=== PATIENT | female | born 1970 | race Caucasian/White ===

== ENCOUNTER 2016-05-13 12:57 | Emergency (ER) | payer OTHER ==
--- NOTE | 2016-05-13 14:30 | RAD ---
PORTABLE CHEST 1 VIEW: Date: 05/13/16 Time: 1405 hours HISTORY: Chest pain. FINDINGS/IMPRESSION: Comparison made with exam of 02/24/16. Exam limited due to patient's body habitus. The heart size is prominent. Lungs are well expanded without confluent areas of consolidation, pneum othorax, shavonne pulmonary edema, or large effusions. POS: [facility]
[2016-05-13 14:36] LABS: #Eosinphils 0.3 thou/uL (0.0-0.7); #Lymphocytes 1.4 thou/uL (1.20-3.40); #Monocytes 0.6 thou/uL (0.11-0.59); #Neutrophils 5.6 thou/uL (1.40-6.50); %Basophils 0.6 % (0.0-1.0); %Eosinophils 3.3 % (0.0-10.0); %Lymphocytes 18.1 % (21.0-51.0); %Monocytes 7.4 % (0.0-10.0); %Neutrophils 70.7 % (42.0-75.0); Anisocytosis SLIGHT = 6-15 cells (100X) (0-5/hpf); Hemoglobin 12.1 g/dL (12.0-16.0); MDiff Complete? YES; Mean Corpuscular HGB CONC 31.6 g/dL (32.0-36.0); Mean Corpuscular Hemoglobin 24.9 pg (27.0-31.0); Mean Corpuscular Volume 78.7 fl (81.0-99.0); PLT Morphology Comment Appears Adequate; Platelet Count 380 thou/uL (130-400); RBC Distribution Width 18.8 % (11.5-14.5); Red Blood Cell (RBC) Count 4.86 mill/uL (4.20-5.40); White Blood Cell (WBC) Count 7.9 thou/uL (4.8-10.8)
[2016-05-13 14:44] LABS: ALT (SGPT) 14 U/L (0-55); AST (SGOT) 12 U/L (5-34); Albumin 4.1 g/dL (3.5-5.0); Alkaline Phosphatase 67 U/L (40-150); Anion Gap 16 mmol/L (10-20); BUN (Urea Nitrogen) 12 mg/dL (7.0-18.7); Bilirubin, Total 0.3 mg/dL (0.2-1.2); Calc. Creatinine Clearance 0 mL/min (70-130); Calcium 9.3 mg/dL (7.8-10.44); Carbon Dioxide 26 mmol/L (22-29); Chloride 104 mmol/L (98-107); Estimated GFR-MDRD 80; Globulin 2.8 g/dL (2.4-3.5); Glucose 110 mg/dL (70-105); Potassium 3.7 mmol/L (3.5-5.1); Protein, Total 6.9 g/dL (6.0-8.3); Sodium 142 mmol/L (136-145)
[2016-05-13 14:45] LABS: CKMB 1.2 ng/mL (0-6.6)
[2016-05-13] MEDS ORDERED: Enoxaparin Sodium 40 MG/0.4 ML SYRINGE ONE (14:52)
[2016-05-13] MEDS ORDERED: Enoxaparin Sodium 80 MG/0.8 ML SYRINGE ONE (14:52)
[2016-05-13 14:59] LABS: PTT 28.1 SEC (22.9-36.1); Prothrombin Time 13.4 SEC (12.0-14.7)
== END 2016-05-13 16:11 | disposition short-term general hospital (02) ==
LOC: MADERS 12:57
DX: R07.9 Chest pain, unspecified (principal); R79.1 Abnormal coagulation profile; I25.10 Atherosclerotic heart disease of native coronary artery without angina pectoris; J44.9 Chronic obstructive pulmonary disease, unspecified; J45.909 Unspecified asthma, uncomplicated; I50.9 Heart failure, unspecified; I73.9 Peripheral vascular disease, unspecified; F17.210 Nicotine dependence, cigarettes, uncomplicated; Z79.899 Other long term (current) drug therapy
CPT/HCPCS: 71010; 80053; 82553; 84484; 85025; 85379; 85610; 85730; 96372; J1650

== ENCOUNTER 2016-07-15 22:02 | Emergency (ER) | payer OTHER ==
[2016-07-15] MEDS ORDERED: HYDROcodone/Acetaminophen 10/325 mg Tablet ONE (23:05)
--- NOTE | 2016-07-16 06:53 | RAD ---
RADIOGRAPH RIGHT KNEE 2 VIEWS: Date: 07/15/16 HISTORY: 46-year-old female with acute right knee pain. FINDINGS: Fine bony detail is poorly visualized because of very large body habitus and also because this is a only a two view study. There is no displaced fracture. No dislocation. Mild tricompartmental osteoarthrosis. IMPRESSION: 1. No displaced fracture identified. 2. Mild tricompartmental osteoarthrosis. POS: [facility]
== END 2016-07-15 23:12 | disposition home or self-care (01) ==
LOC: MADERS 22:02
DX: M25.561 Pain in right knee (principal); I25.10 Atherosclerotic heart disease of native coronary artery without angina pectoris; E11.9 Type 2 diabetes mellitus without complications; J44.9 Chronic obstructive pulmonary disease, unspecified; G62.9 Polyneuropathy, unspecified; J45.909 Unspecified asthma, uncomplicated; I73.9 Peripheral vascular disease, unspecified; I50.9 Heart failure, unspecified; F41.9 Anxiety disorder, unspecified; F17.210 Nicotine dependence, cigarettes, uncomplicated; Z79.82 Long term (current) use of aspirin; Z79.899 Other long term (current) drug therapy

== ENCOUNTER 2016-10-02 20:25 | Emergency (ER) | payer OTHER ==
[~2016-10-02 20:25] MED LIST: Sodium Chloride 0.9% 1,000 ML BAG ONE; Sodium Chloride 0.9% 100 ML BAG ONE
[2016-10-02] MEDS ORDERED: Ketorolac Tromethamine 30 MG/ML VIAL ONE (22:25)
[2016-10-02] MEDS ORDERED: acetaZOLAMIDE Sodium 500 mg Vial ONE (22:25)
[2016-10-02] MEDS ORDERED: Ondansetron HCl/PF 4 MG/2 ML Vial ONE (22:25)
[2016-10-02] MEDS ORDERED: manNITOL 20% 500 ML ONE (22:25)
[2016-10-02] MEDS ORDERED: Sterile Water 100 ML ONE (22:29)
== END 2016-10-03 02:05 | disposition home or self-care (01) ==
LOC: MADERS 20:25
DX: H40.213 Acute angle-closure glaucoma, bilateral (principal); E11.51 Type 2 diabetes mellitus with diabetic peripheral angiopathy without gangrene; I50.9 Heart failure, unspecified; J44.9 Chronic obstructive pulmonary disease, unspecified; I25.10 Atherosclerotic heart disease of native coronary artery without angina pectoris; E11.40 Type 2 diabetes mellitus with diabetic neuropathy, unspecified; F41.9 Anxiety disorder, unspecified; F17.210 Nicotine dependence, cigarettes, uncomplicated; E66.9 Obesity, unspecified; Z79.891 Long term (current) use of opiate analgesic; Z79.899 Other long term (current) drug therapy
CPT/HCPCS: 96361; 96365; 96367; 96375; 96376; J1120; J1885; J2270; J2405; J7050; J7799

== ENCOUNTER 2020-04-19 17:39 | Emergency (ER) | payer OTHER, SELFPAY ==
[2020-04-19] MEDS ORDERED: Albuterol Sulfate 2.5 mg/3 ml Neb ONE (17:59)
[2020-04-19] MEDS ORDERED: Ipratropium Bromide 2.5 ml Neb ONE ×2 (17:59→20:17)
[2020-04-19 18:42] LABS: #Eosinphils 0.3 thou/uL (0.0-0.7); #Monocytes 0.5 thou/uL (0.11-0.59); #Neutrophils 5.4 thou/uL (1.40-6.50); %Basophils 0.4 % (0.0-1.0); %Eosinophils 3.7 % (0.0-10.0); %Lymphocytes 19.1 % (21.0-51.0); %Monocytes 6.9 % (0.0-10.0); %Neutrophils 69.9 % (42.0-75.0); Anisocytosis SLIGHT = 6-15 cells (100X) (0-5/hpf); Hemoglobin 11.4 g/dL (12.0-16.0); Hypochromia SLIGHT = 6-15 cells (100X) (0-5/hpf); MDiff Complete? YES; Mean Corpuscular HGB CONC 30.7 g/dL (32.0-36.0); Mean Corpuscular Hemoglobin 24.1 pg (27.0-31.0); Mean Corpuscular Volume 78.4 fL (78.0-98.0); Mean Platelet Volume 6.7 fL (7.4-10.4); Microcytosis SLIGHT = 6-15 cells (100X) (0-5/hpf); Ovalocytes SLIGHT = 2-5 cells (100X) (0-1/hpf); Platelet Count 383 thou/uL (130-400); Platelet Morphology Comment Appears Adequate; Red Blood Cell (RBC) Count 4.75 mill/uL (4.20-5.40); White Blood Cell (WBC) Count 7.8 thou/uL (4.8-10.8)
[2020-04-19 18:46] LABS: ALT (SGPT) 9 U/L (8-55); AST (SGOT) 8 U/L (5-34); Albumin 3.7 g/dL (3.5-5.0); Alkaline Phosphatase 78 U/L (40-110); Anion Gap 14 mmol/L (10-20); BUN (Urea Nitrogen) 10 mg/dL (7.0-18.7); Bilirubin, Total 0.2 mg/dL (0.2-1.2); Calc. Creatinine Clearance 0 mL/min (70-130); Calcium 8.6 mg/dL (7.8-10.44); Carbon Dioxide 28 mmol/L (22-29); Chloride 103 mmol/L (98-107); Globulin 3.2 g/dL (2.4-3.5); Glucose 167 mg/dL (70-105); Potassium 4.4 mmol/L (3.5-5.1); Protein, Total 6.9 g/dL (6.0-8.3); Sodium 141 mmol/L (136-145)
[2020-04-19 18:47] LABS: Base Excess-Venous 3.3 mmol/L (-2.0 to 3.0); Bicarbonate (HCO3v) 30.2 mmol/L (22.0-28.0); CO2 Tension (PvCO2) 54.9 mmHg (40.0-50.0); Calcium, Ionized 1.12 mmol/L (1.15-1.33); Chloride 104 mmol/L (98-107); Hemoglobin - Calc 13.3 g/dL (12.0-16.0); Potassium 4.4 mmol/L (3.5-5.1); Sodium 141 mmol/L (138-145); T. Carbon Dioxide 31.9 mmol/L (22.0-28.0)
[2020-04-19] MEDS ORDERED: methylPREDNISolone Sod Succ/PF 125 MG/2 ML VIAL ONE (18:49)
--- NOTE | 2020-04-19 19:31 | RAD ---
PORTABLE CHEST: 04/19/20 PROVIDED CLINICAL HISTORY: Shortness of breath. FINDINGS: Comparison 01/02/17. Evaluation is limited by patient body habitus. The cardiac silhouette appears enlarged, which may be at least partially on the basis of portable technique. There is no lobar consolidation, pleural fluid or pneumothorax apparent. IMPRESSION: No definite evidence for an acute cardiopulmonary process. POS: [facility]
[2020-04-19] MEDS ORDERED: Albuterol Sulfate 2.5 mg/0.5 ml Neb ONE (20:19)
== END 2020-04-19 22:00 | disposition home or self-care (01) ==
LOC: MADERS 17:39
DX: J45.909 Unspecified asthma, uncomplicated (principal); I50.9 Heart failure, unspecified; E11.40 Type 2 diabetes mellitus with diabetic neuropathy, unspecified; F17.210 Nicotine dependence, cigarettes, uncomplicated
CPT/HCPCS: 36415; 71045; 80053; 82330; 82803; 85025; 96374; J2930; J7611

== ENCOUNTER 2020-04-24 19:32 | Emergency (ER) | payer SELFPAY ==
--- NOTE | 2020-04-24 21:12 | RAD ---
TWO VIEW CHEST: 04/24/20 INDICATIONS: Shortness of breath. Chest pain. COMPARISON: 04/19/20. Cardiomegaly. Mild vascular prominence. There is diffuse interstitial prominence bilaterally with coty dence of possible hazy ground glass type infiltrate in the left mid lung. No consolidation. No signif icant effusion. IMPRESSION: Interstitial prominence in question hazy associated ground glass type infiltrate in the left mid lung field. Rule out COVID pneumonia. POS: [facility]
[2020-04-24 21:13] LABS: Hemoglobin 11.6 g/dL (12.0-16.0); Mean Corpuscular HGB CONC 31.6 g/dL (32.0-36.0); Mean Corpuscular Hemoglobin 24.3 pg (27.0-31.0); Mean Corpuscular Volume 76.8 fL (78.0-98.0); Mean Platelet Volume 6.6 fL (7.4-10.4); Platelet Count 409 thou/uL (130-400); RBC Distribution Width 17.2 % (11.5-14.5); Red Blood Cell (RBC) Count 4.79 mill/uL (4.20-5.40); White Blood Cell (WBC) Count 11.8 thou/uL (4.8-10.8)
[2020-04-24 21:14] LABS: Band 2 % (5-11); Lymphocytes 18 % (21-51); MDiff Complete? YES; Monocytes 2 % (0-10); Neutrophil 78 % (42-75); Platelet Morphology Comment Appears Adequate; RBC Morphology Normal
[2020-04-24 21:51] LABS: ALT (SGPT) 12 U/L (8-55); AST (SGOT) 17 U/L (5-34); Albumin 3.7 g/dL (3.5-5.0); Alkaline Phosphatase 92 U/L (40-110); Anion Gap 20 mmol/L (10-20); BUN (Urea Nitrogen) 19 mg/dL (7.0-18.7); Bilirubin, Total 0.2 mg/dL (0.2-1.2); Calc. Creatinine Clearance 0 mL/min (70-130); Calcium 8.9 mg/dL (7.8-10.44); Carbon Dioxide 24 mmol/L (22-29); Chloride 99 mmol/L (98-107); Globulin 3.3 g/dL (2.4-3.5); Glucose 292 mg/dL (70-105); Lipase 43 U/L (8-78); Potassium 5.4 mmol/L (3.5-5.1); Sodium 138 mmol/L (136-145)
[2020-04-24] MEDS ORDERED: Sodium Chloride 0.9% 1,000 ML ONE (22:29)
[2020-04-24] MEDS ORDERED: cefTRIAXone\\ROCEPHIN 2 GM VIAL ONE (22:29)
[2020-04-24] MEDS ORDERED: Sodium Chloride 0.9% 100 ML ONE (22:30)
[2020-04-24] MEDS ORDERED: Enoxaparin Sodium 60 MG/0.6 ML SYRINGE ONE (22:59)
[2020-04-25 00:09] LABS: SARS-CoV-2 NAA Rapid Test Not Detected (NotDetected)
== END 2020-04-24 23:59 | disposition short-term general hospital (02) ==
LOC: MADERS 19:32
DX: U07.1 COVID-19 (principal); J44.0 Chronic obstructive pulmonary disease with (acute) lower respiratory infection; J12.82 Pneumonia due to coronavirus disease 2019; G35 Multiple sclerosis; K58.9 Irritable bowel syndrome, unspecified; E11.40 Type 2 diabetes mellitus with diabetic neuropathy, unspecified; E66.9 Obesity, unspecified; I73.9 Peripheral vascular disease, unspecified; F17.210 Nicotine dependence, cigarettes, uncomplicated; I25.10 Atherosclerotic heart disease of native coronary artery without angina pectoris; Z85.42 Personal history of malignant neoplasm of other parts of uterus; E28.2 Polycystic ovarian syndrome; I50.9 Heart failure, unspecified; N39.3 Stress incontinence (female) (male)
CPT/HCPCS: 0240U; 36416; 71046; 80053; 83605; 83690; 83880; 84484; 85025; 85379; 93005; 96365; 96372; J0696; J1650; J3490; J7050

== ENCOUNTER 2020-06-10 13:01 | Emergency (ER) | payer SELFPAY ==
[2020-06-10] MEDS ORDERED: predniSONE 20 MG TAB ONE (13:58)
[2020-06-10] MEDS ORDERED: HYDROcodone/Acetaminophen 5/325 mg Tablet ONE (13:58)
== END 2020-06-10 14:40 | disposition home or self-care (01) ==
LOC: MADERS 13:01
DX: M54.12 Radiculopathy, cervical region (principal); E11.9 Type 2 diabetes mellitus without complications; K58.9 Irritable bowel syndrome, unspecified; G35 Multiple sclerosis; E11.40 Type 2 diabetes mellitus with diabetic neuropathy, unspecified; E66.9 Obesity, unspecified; J44.9 Chronic obstructive pulmonary disease, unspecified; I50.9 Heart failure, unspecified; E28.2 Polycystic ovarian syndrome; F17.210 Nicotine dependence, cigarettes, uncomplicated; I25.10 Atherosclerotic heart disease of native coronary artery without angina pectoris; I73.9 Peripheral vascular disease, unspecified; Z85.3 Personal history of malignant neoplasm of breast; Z79.899 Other long term (current) drug therapy; Z79.82 Long term (current) use of aspirin
CPT/HCPCS: 72040; J7512

== ENCOUNTER 2020-06-16 12:10 | Emergency (ER) | payer MEDICAID, SELFPAY ==
[2020-06-16] MEDS ORDERED: methylPREDNISolone Sod Succ/PF 125 MG/2 ML VIAL ONE (12:43)
[2020-06-16 13:17] LABS: Hemoglobin 12.1 g/dL (12.0-16.0); Mean Corpuscular Volume 77.5 fL (78.0-98.0); Mean Platelet Volume 6.6 fL (7.4-10.4); Platelet Count 465 thou/uL (130-400); Red Blood Cell (RBC) Count 5.03 mill/uL (4.20-5.40); White Blood Cell (WBC) Count 11.9 thou/uL (4.8-10.8)
[2020-06-16 13:18] LABS: Anisocytosis SLIGHT = 6-15 cells (100X) (0-5/hpf); Band 9 % (5-11); Hypochromia SLIGHT = 6-15 cells (100X) (0-5/hpf); Lymphocytes 16 % (21-51); MDiff Complete? YES; Monocytes 12 % (0-10); Neutrophil 63 % (42-75); Platelet Morphology Comment Appears Increased
[2020-06-16 13:20] LABS: ALT (SGPT) 15 U/L (8-55); AST (SGOT) 25 U/L (5-34); Albumin 3.9 g/dL (3.5-5.0); Alkaline Phosphatase 103 U/L (40-110); Anion Gap 16 mmol/L (10-20); BUN (Urea Nitrogen) 15 mg/dL (7.0-18.7); Bilirubin, Total 0.4 mg/dL (0.2-1.2); CK (CPK) 69 U/L (29-168); Calc. Creatinine Clearance 0 mL/min (70-130); Calcium 9.3 mg/dL (7.8-10.44); Carbon Dioxide 28 mmol/L (22-29); Chloride 100 mmol/L (98-107); Globulin 3.3 g/dL (2.4-3.5); Glucose 129 mg/dL (70-105); Magnesium 1.9 mg/dL (1.6-2.6); Potassium 4.5 mmol/L (3.5-5.1); Protein, Total 7.2 g/dL (6.0-8.3); Sodium 139 mmol/L (136-145)
[2020-06-16] MEDS ORDERED: Levofloxacin 500 mg/D5W 100 ml Premix Bag ONE (13:25)
[2020-06-16] MEDS ORDERED: Albuterol Sulfate 2.5 mg/3 ml Neb ONE (14:21)
== END 2020-06-16 16:00 | disposition home or self-care (01) ==
LOC: MADERS 12:10
DX: J44.1 Chronic obstructive pulmonary disease with (acute) exacerbation (principal); J18.9 Pneumonia, unspecified organism; K58.9 Irritable bowel syndrome, unspecified; E11.40 Type 2 diabetes mellitus with diabetic neuropathy, unspecified; E11.51 Type 2 diabetes mellitus with diabetic peripheral angiopathy without gangrene; I50.9 Heart failure, unspecified; G35 Multiple sclerosis; E28.2 Polycystic ovarian syndrome; G25.81 Restless legs syndrome; E66.9 Obesity, unspecified; I25.10 Atherosclerotic heart disease of native coronary artery without angina pectoris; F17.210 Nicotine dependence, cigarettes, uncomplicated
CPT/HCPCS: 71045; 80053; 82550; 83605; 83735; 83880; 84484; 85025; 87040; 87804; 93005; 94760; 96365; 96375; J1956; J2930; J7611; J7620

== ENCOUNTER 2020-06-25 10:28 | Emergency (ER) | payer MEDICAID, SELFPAY ==
[2020-06-25] MEDS ORDERED: Dexamethasone 10 MG/ML VIAL ONE (11:51)
[2020-06-25] MEDS ORDERED: Ketorolac Tromethamine 60 MG/2 ML VIAL ONE (11:51)
[2020-06-25] MEDS ORDERED: HYDROcodone/Acetaminophen 5/325 mg Tablet ONE (11:51)
== END 2020-06-25 12:45 | disposition home or self-care (01) ==
LOC: MADERS 10:28
DX: M79.602 Pain in left arm (principal); F17.210 Nicotine dependence, cigarettes, uncomplicated; I25.10 Atherosclerotic heart disease of native coronary artery without angina pectoris; I50.9 Heart failure, unspecified; G35 Multiple sclerosis
CPT/HCPCS: 96372; 99283; J1100; J1885

== ENCOUNTER 2020-11-05 20:13 | Emergency (ER) | payer MEDICAID ==
[2020-11-05 21:48] LABS: ALT (SGPT) 14 U/L (8-55); AST (SGOT) 10 U/L (5-34); Alkaline Phosphatase 84 U/L (40-110); Anion Gap 15 mmol/L (10-20); BUN (Urea Nitrogen) 12 mg/dL (7.0-18.7); Bilirubin, Total 0.3 mg/dL (0.2-1.2); Calc. Creatinine Clearance 0 mL/min (70-130); Calcium 10.6 mg/dL (7.8-10.44); Carbon Dioxide 29 mmol/L (22-29); Chloride 100 mmol/L (98-107); Globulin 3.6 g/dL (2.4-3.5); Glucose 136 mg/dL (70-105); Protein, Total 7.6 g/dL (6.0-8.3); Sodium 140 mmol/L (136-145)
[2020-11-05 22:18] LABS: Eosinophils 7 % (0-10); Hypochromia SLIGHT = 6-15 cells (100X) (0-5/hpf); Lymphocytes 19 % (21-51); MDiff Complete? YES; Mean Corpuscular Hemoglobin 21.9 pg (27.0-31.0); Mean Corpuscular Volume 75.7 fL (78.0-98.0); Mean Platelet Volume 7.6 fL (7.4-10.4); Microcytosis MODERATE=15-30 cells (100X) (0-5/hpf); Monocytes 5 % (0-10); Neutrophil 66 % (42-75); Ovalocytes SLIGHT = 2-5 cells (100X) (0-1/hpf); Platelet Count 486 thou/uL (130-400); Polychromasia SLIGHT = 2-3 cells (100X) (0-2/hpf); Reactive Lymphocytes 3 % (0-10); Red Blood Cell (RBC) Count 5.47 mill/uL (4.20-5.40); White Blood Cell (WBC) Count 10.7 thou/uL (4.8-10.8)
== END 2020-11-05 22:40 | disposition left against medical advice (07) ==
LOC: MADERS 20:13
DX: R07.9 Chest pain, unspecified (principal); R06.02 Shortness of breath; Z20.822 Contact with and (suspected) exposure to COVID-19; K58.9 Irritable bowel syndrome, unspecified; E11.40 Type 2 diabetes mellitus with diabetic neuropathy, unspecified; G35 Multiple sclerosis; E28.2 Polycystic ovarian syndrome; J44.9 Chronic obstructive pulmonary disease, unspecified; I50.9 Heart failure, unspecified; I25.10 Atherosclerotic heart disease of native coronary artery without angina pectoris; I73.9 Peripheral vascular disease, unspecified; F17.210 Nicotine dependence, cigarettes, uncomplicated; Z85.3 Personal history of malignant neoplasm of breast; Z79.891 Long term (current) use of opiate analgesic; Z79.899 Other long term (current) drug therapy
CPT/HCPCS: 71045; 80053; 83880; 84484; 85025; 93005